=== PATIENT | female | born 1965 | race Caucasian/White ===

== ENCOUNTER → 2024-08-03 08:12 | Outpatient (REF) | payer OTHER, SELFPAY ==
[2024-08-03 10:41] LABS: HDL Cholesterol 88 mg/dl; LDL Cholesterol, Calculated 101 mg/dl; Total Cholesterol 215 mg/dl (50-199); Triglyceride 133 mg/dl (10-149); Very Low Density Lipoprotein 26 mg/dl (0-30)
== END ==
LOC: HWRAD 08:12
PROVIDERS: ATTENDING PHYSICIAN Family Medicine
DX: M81.0 Age-related osteoporosis without current pathological fracture (principal); Z00.00 Encounter for general adult medical examination without abnormal findings; Z13.220 Encounter for screening for lipoid disorders
CPT/HCPCS: 36415; 77080; 80061

== ENCOUNTER → 2024-08-07 11:00 | Outpatient (REF) | payer OTHER, SELFPAY | LOC: RAD 11:00 | PROVIDERS: ATTENDING PHYSICIAN Physician Assistant; FAMILY PHYSICIAN Family Medicine | DX: M54.2 Cervicalgia (principal) | CPT/HCPCS: 72125 ==

== ENCOUNTER → 2025-04-04 09:40 | Outpatient (REF) | payer SELFPAY | LOC: HWRAD 09:40 | PROVIDERS: ATTENDING PHYSICIAN Specialist; FAMILY PHYSICIAN Family Medicine | DX: Z94.0 Kidney transplant status (principal); Z91.89 Other specified personal risk factors, not elsewhere classified | CPT/HCPCS: 75571 ==